=== PATIENT | female | born 1965 | race Hispanic/Latino ===

== ENCOUNTER 2019-01-26 19:51 | Emergency (ER) | payer OTHER, SELFPAY ==
[2019-01-26] MEDS ORDERED: ONDANSETRON 4 MG/2 ML VIAL ONE ×2 (20:57→23:40)
[2019-01-26] MEDS ORDERED: NA CHLORIDE 0.9% 1,000 ML ONE (20:58)
[2019-01-26] MEDS ORDERED: ACETAMINOPHEN 325 MG TABLET ONE (21:13)
[2019-01-26 21:19] LABS: Absolute Lymphocytes (CBC) 0.6 K/uL (0.7-4.9); Basophils % 0.7 % (0-1.3); Hematocrit 46.5 % (36.0-45.0); Lymphocytes % 8.3 % (15.3-44.8); MPV 8.6 fL (7.6-11.3); RBC Red Blood Cell Count 5.09 M/uL (3.86-4.86)
[2019-01-26 21:34] LABS: ALT/SGPT 30 U/L (12-78); AST/SGOT 36 U/L (15-37); Albumin 3.7 g/dL (3.4-5.0); Alkaline Phosphatase 121 U/L (45-117); BUN Blood Urea Nitrogen 15 mg/dL (7-18); Bicarbonate 24 mmol/L (21-32); Bilirubin Direct 0.2 mg/dL (0-0.2); Bilirubin Total 0.7 mg/dL (0.2-1.0); Glucose Level 208 mg/dL (74-106); Lipase 47 U/L (73-393); Potassium 3.4 mmol/L (3.5-5.1); Protein, Total 7.1 g/dL (6.4-8.2); Sodium Level 136 mmol/L (136-145)
--- NOTE | 2019-01-27 00:15 | ER ---
Nurse's Notes [facility] Name: Mae Srinivasan Age: 53 yrs Sex: Female : 1965 Arrival Date: 01/26/2019 Time: 19:56 Bed 6 Private MD: Diagnosis: Dehydration;Nausea Presentation: 01/26 20:08 Presenting complaint: Patient states: body aches, fever, nausea and vomiting today. ak1 Transition of care: patient was not received from another setting of care. Onset of symptoms was January 26, 2019. Risk Assessment: Do you want to hurt yourself or someone else? Patient reports no desire to harm self or others. Initial Sepsis Screen: Does the patient meet any 2 criteria? No. Patient's initial sepsis screen is negative. Does the patient have a suspected source of infection? No. Patient's initial sepsis screen is negative. Care prior to arrival: None. 20:08 Method Of Arrival: Ambulatory ak1 20:08 Acuity: MALINDA 3 ak1 Triage Assessment: 20:09 General: Appears in no apparent distress. uncomfortable, obese, Behavior is calm, ak1 cooperative. Pain: Complains of pain in body aches, headache. GI: Reports nausea, vomiting. 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 - Social history:: Smoking status: Patient/guardian denies using tobacco. - Ebola Screening: : No symptoms or risks identified at this time. Screenin:11 Abuse screen: Denies threats or abuse. Denies injuries from another. Nutritional ak1 screening: No deficits noted. Tuberculosis screening: No symptoms or risk factors identified. Fall Risk None identified. Assessment: 21:12 General: Appears uncomfortable, Behavior is calm, cooperative, appropriate for age. ea Pain: Complains of pain in headache. Neuro: Level of Consciousness is awake, alert, obeys commands, Oriented to person, place, time, situation. Cardiovascular: Patient's skin is warm and dry. Respiratory: Airway is patent Respiratory effort is even, unlabored, Respiratory pattern is regular, symmetrical. GI: Abdomen is obese, Parent/caregiver reports the patient having vomiting. Derm: Skin is dry, Skin is pale, Skin temperature is warm. 22:15 Reassessment: Patient and/or family updated on plan of care and expected duration. Pain ea level reassessed. Patient is alert, oriented x 3, equal unlabored respirations, skin warm/dry/pink. Awaiting on lab results. 23:43 Reassessment: Patient and/or family updated on plan of care and expected duration. Pain ea level reassessed. Patient is alert, oriented x 3, equal unlabored respirations, skin warm/dry/pink. 01/27 00:47 Reassessment: Patient and/or family updated on plan of care and expected duration. Pain ea level reassessed. Patient is alert, oriented x 3, equal unlabored respirations, skin warm/dry/pink. Patient states feeling better. Patient states symptoms have improved. 01:36 Reassessment: Patient and/or family updated on plan of care and expected duration. Pain ea level reassessed. Patient is alert, oriented x 3, equal unlabored respirations, skin warm/dry/pink. Discharge instruction given to patient, verbalized the understanding of instruction. Pt left ambulatory, accompanied by friend, pt tolerating well. Patient states feeling better. Patient states symptoms have improved. Vital Signs: 01/26 20:09 BP 147 / 82; Pulse 87; Resp 16 S; Temp 98.5; Pulse Ox 97% on R/A; Weight 99.79 kg (R); ak1 Height 5 ft. 0 in. (152.40 cm) (R); Pain 10/10; 21:19 BP 114 / 70; Pulse 78; Resp 18; Temp 98.3; Pulse Ox 99% ; ea 22:15 BP 119 / 61; Pulse 80; Resp 18; Pulse Ox 99% on R/A; ea 23:43 BP 110 / 65; Pulse 63; Resp 18; Pulse Ox 100% on R/A; ea 01/27 00:49 BP 100 / 54; Pulse 60; Resp 18; Pulse Ox 100% ; ea 01:37 BP 107 / 60; Pulse 60; Resp 18; Temp 97.8; Pulse Ox 99% on R/A; ea 01/26 20:09 Body Mass Index 42.97 (99.79 kg, 152.40 cm) ak1 ED Course: 01/26 19:56 Patient arrived in ED. cl3 20:08 Triage completed. ak1 20:09 Arm band placed on Patient placed in waiting room, Patient notified of wait time. ak1 20:11 Patient has correct armband on for positive identification. ak1 20:14 Zaire Pinto MD is Attending Physician. tw4 20:47 Linnea Naik RN is Primary Nurse. ea 21:00 Inserted saline lock: 20 gauge in right antecubital area, using aseptic technique. ea 01/27 01:36 No provider procedures requiring assistance completed. IV discontinued, intact, ea bleeding controlled, No redness/swelling at site. Pressure dressing applied. Administered Medications: 01/26 21:10 Drug: Zofran 4 mg Route: IVP; Site: right antecubital; ea 22:00 Follow up: Response: No adverse reaction; Nausea is decreased ea 21:10 Drug: NS 0.9% 1000 ml Route: IV; Rate: 1 bolus; Site: right antecubital; ea 22:00 Follow up: Response: No adverse reaction; IV Status: Completed infusion; IV Intake: ea 1000ml 21:17 Drug: Tylenol 650 mg Route: PO; ea 22:01 Follow up: Response: No adverse reaction ea 23:43 Drug: Zofran 4 mg Route: IVP; Site: right antecubital; ea 01/27 00:47 Follow up: Response: No adverse reaction; Nausea is decreased ea 00:03 Drug: NS 0.9% 1000 ml Route: IV; Rate: 1 bolus; Site: right antecubital; ea 01:30 Follow up: Response: No adverse reaction; IV Status: Completed infusion; IV Intake: ea 1000ml Intake: 01/26 22:00 IV: 1000ml; Total: 1000ml. ea 01/27 01:30 IV: 1000ml; Total: 2000ml. ea Outcome: 00:10 Discharge ordered by . tw4 01:36 Discharged to home ambulatory, with friend. ea 01:36 Condition: stable 01:36 Discharge instructions given to patient, Instructed on discharge instructions, follow up and referral plans. medication usage, Demonstrated understanding of instructions, follow-up care, medications, Prescriptions given X 1. 01:38 Patient left the ED. ea Signatures: Veronica Araiza RN RN ak1 Linnea Naik, JACOBY RN Zaire Tineo MD MD tw4 Abad Kothari cl3 Corrections: (The following items were deleted from the chart) 01/26 20:11 20:09 Pulse 87bpm; Pulse Ox 97% RA; Temp 98.5F; 99.79 kg Reported; Height 5 ft. 0 in. ak1 Reported; BMI: 42.9; Pain 02/19; ak1 20:29 20:08 Acuity: MALINDA 4 ak1 ak1
--- NOTE | 2019-01-27 00:16 | EDPHYS ---
Physician Documentation [facility] Name: Mae Srinivasan Age: 53 yrs Sex: Female : 1965 Arrival Date: 01/26/2019 Time: 19:56 Bed 6 Private MD: ED Physician Zaire Pinto HPI: 01/26 21:36 This 53 yrs old Female presents to ER via Ambulatory with complaints of tw4 Nausea/Vomiting. 21:36 The patient presents to the emergency department with nausea, that is moderate. Onset: tw4 The symptoms/episode began/occurred today. Possible causes: unknown. The symptoms are aggravated by nothing. The symptoms are alleviated by nothing. Severity of symptoms: At their worst the symptoms were mild in the emergency department the symptoms are unchanged. The patient has not experienced similar symptoms in the past. 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 - Social history:: Smoking status: Patient/guardian denies using tobacco. - Ebola Screening: : No symptoms or risks identified at this time. ROS: 21:36 Eyes: Negative for injury, pain, redness, and discharge. tw4 21:36 ENT: Negative for injury, pain, and discharge, Cardiovascular: Negative for chest pain, palpitations, and edema, Respiratory: Negative for shortness of breath, cough, wheezing, and pleuritic chest pain, Abdomen/GI: Negative for abdominal pain, nausea, vomiting, diarrhea, and constipation, Back: Negative for injury and pain, Skin: Negative for injury, rash, and discoloration, Neuro: Negative for headache, weakness, numbness, tingling, and seizure. 21:36 Constitutional: Positive for body aches, fatigue, malaise, Negative for chills, poor PO intake, weight loss. Exam: 21:36 Constitutional: This is a well developed, well nourished patient who is awake, alert, tw4 and in no acute distress. Head/Face: Normocephalic, atraumatic. Chest/axilla: Normal chest wall appearance and motion. Nontender with no deformity. No lesions are appreciated. Cardiovascular: Regular rate and rhythm with a normal S1 and S2. No gallops, murmurs, or rubs. Normal PMI, no JVD. No pulse deficits. Respiratory: Lungs have equal breath sounds bilaterally, clear to auscultation and percussion. No rales, rhonchi or wheezes noted. No increased work of breathing, no retractions or nasal flaring. Abdomen/GI: Soft, non-tender, with normal bowel sounds. No distension or tympany. No guarding or rebound. No evidence of tenderness throughout. Back: No spinal tenderness. No costovertebral tenderness. Full range of motion. MS/ Extremity: Pulses equal, no cyanosis. Neurovascular intact. Full, normal range of motion. Neuro: Awake and alert, GCS 15, oriented to person, place, time, and situation. Cranial nerves II-XII grossly intact. Motor strength 5/5 in all extremities. Sensory grossly intact. Cerebellar exam normal. Normal gait. Vital Signs: 20:09 BP 147 / 82; Pulse 87; Resp 16 S; Temp 98.5; Pulse Ox 97% on R/A; Weight 99.79 kg (R); ak1 Height 5 ft. 0 in. (152.40 cm) (R); Pain 10/10; 21:19 BP 114 / 70; Pulse 78; Resp 18; Temp 98.3; Pulse Ox 99% ; ea 22:15 BP 119 / 61; Pulse 80; Resp 18; Pulse Ox 99% on R/A; ea 23:43 BP 110 / 65; Pulse 63; Resp 18; Pulse Ox 100% on R/A; ea 01/27 00:49 BP 100 / 54; Pulse 60; Resp 18; Pulse Ox 100% ; ea 01:37 BP 107 / 60; Pulse 60; Resp 18; Temp 97.8; Pulse Ox 99% on R/A; ea 01/26 20:09 Body Mass Index 42.97 (99.79 kg, 152.40 cm) ak1 MDM: 01/26 20:41 Patient medically screened. tw4 01/27 06:41 Differential diagnosis: Nonspecific abd pain, gastritis. Data reviewed: vital signs, tw4 nurses notes. Counseling: I had a detailed discussion with the patient and/or guardian regarding: the historical points, exam findings, and any diagnostic results supporting the discharge/admit diagnosis. Special discussion: I discussed with the patient/guardian in detail that at this point there is no indication for admission to the hospital. It is understood, however, that if the symptoms persist or worsen the patient needs to return immediately for re-evaluation. 01/26 20:10 Order name: Flu; Complete Time: 23:38 [facility] 01/26 23:39 Interpretation: Within normal limits. [facility] [place] 01/26 20:15 Order name: Basic Metabolic Panel; Complete Time: 23:38 [facility] [place] 01/26 23:38 Interpretation: Normal except: K 3.4; GLUC 208. [facility] [place] 01/26 20:15 Order name: CBC with Diff; Complete Time: 23:38 [facility] [place] 01/26 23:39 Interpretation: Normal except: RBC 5.09; HGB 15.9; HCT 46.5; JABARI% 83.2; LYM% 8.3; LYMA tw4 0.6. 01/26 20:15 Order name: Creatinine for Radiology; Complete Time: 23:38 [facility] [place] 01/26 23:39 Interpretation: Within normal limits: CRE 0.64; GFR > 90. [facility] [place] 01/26 20:15 Order name: Hepatic Function; Complete Time: 23:38 [facility] [place] 01/26 23:39 Interpretation: Normal except: ALK 121. [facility] [place] 01/26 20:15 Order name: Lipase; Complete Time: 23:38 [facility] [place] 01/26 23:39 Interpretation: Within normal limits: LIP 47. [facility] [place] 01/26 20:15 Order name: IV Saline Lock; Complete Time: 21:10 [facility] [place] 01/26 20:15 Order name: Labs collected and sent; Complete Time: 21:10 [facility] [place] 01/27 00:11 Order name: Urine Dipstick-Ancillary (obtain specimen) Administered Medications: 01/26 21:10 Drug: Zofran 4 mg Route: IVP; Site: right antecubital; ea 22:00 Follow up: Response: No adverse reaction; Nausea is decreased ea 21:10 Drug: NS 0.9% 1000 ml Route: IV; Rate: 1 bolus; Site: right antecubital; ea 22:00 Follow up: Response: No adverse reaction; IV Status: Completed infusion; IV Intake: ea 1000ml 21:17 Drug: Tylenol 650 mg Route: PO; ea 22:01 Follow up: Response: No adverse reaction ea 23:43 Drug: Zofran 4 mg Route: IVP; Site: right antecubital; ea 01/27 00:47 Follow up: Response: No adverse reaction; Nausea is decreased ea 00:03 Drug: NS 0.9% 1000 ml Route: IV; Rate: 1 bolus; Site: right antecubital; ea 01:30 Follow up: Response: No adverse reaction; IV Status: Completed infusion; IV Intake: ea 1000ml Disposition: 01/27/19 00:10 Discharged to Home. Impression: Dehydration, Nausea. - Condition is Stable. - Discharge Instructions: Dehydration, Adult, Nausea, Adult. - Prescriptions for Zofran 4 mg Oral Tablet - take 1 tablet by ORAL route every 12 hours As needed; 6 tablet. - Work release form, Medication Reconciliation Form, Thank You Letter, Antibiotic Education, Prescription Opioid Use form. - Follow up: Private Physician; When: Upon discharge from the Emergency Department; Reason: If symptoms return, Recheck today's complaints, Continuance of care. - Problem is new. - Symptoms have improved. Signatures: Dispatcher [employer] EDMS Veronica Araiza RN RN akLinnea Choudhary RN Zaire Swan ea, MD MD tw4 Corrections: (The following items were deleted from the chart) 01:38 00:10 01/27/2019 00:10 Discharged to Home. Impression: Dehydration; Nausea. Condition ea is Stable. Forms are Medication Reconciliation Form, Thank You Letter, Antibiotic Education, Prescription Opioid Use. Follow up: Private Physician; When: Upon discharge from the Emergency Department; Reason: If symptoms return, Recheck today's complaints, Continuance of care. Problem is new. Symptoms have improved. tw4
[2019-01-27 02:28] VITALS: BP 107/60; TEMP 97.8; O2SAT 99
== END 2019-01-27 01:38 | disposition home or self-care (01) ==
LOC: ER 19:51
DX: R11.2 Nausea with vomiting, unspecified (principal); E86.0 Dehydration
CPT/HCPCS: 36415; 80048; 80076; 83690; 85025; 87804; 96361; 96374; 99283; J2405; J7030